=== PATIENT | female | born 2005 | race Caucasian/White ===

== ENCOUNTER 2023-06-10 16:54 | Emergency (ER) | payer BC, OTHER, SELFPAY ==
--- NOTE | ~2023-06-10 | XR_ITS ---
EXAMINATION: XR chest 2V DATE: 06/10/2023 18:50 INDICATION: Syncope. TECHNIQUE: Frontal and lateral views of the chest were obtained. COMPARISON: None. FINDINGS: There is no pneumonia, pleural effusion, or pneumothorax. The heart size is normal. IMPRESSION: 1. No acute cardiopulmonary disease. Reviewed, dictated and finalized at location E.
[2023-06-10 16:59] VITALS: BP 132/74; PULSE 115; RESP 18; TEMP 36.8; O2SAT 99
--- NOTE | 2023-06-10 16:59 | ECG_ITS ---
Measurements Intervals [place] Rate: 123 P: 59 NC: 120 QRS: 66 QRSD: 105 T: 53 QT: 307 QTc: 439 Interpretive Statements SINUS TACHYCARDIA INCOMPLETE RIGHT BUNDLE BRANCH BLOCK [90+ ms QRS DURATION, TERMINAL R IN V1/V2, 40+ ms S IN I/aVL/V4/V5/V6] NONSPECIFIC T-WAVE ABNORMALITY ABNORMAL RHYTHM ECG NO PREVIOUS ECG AVAILABLE FOR COMPARISON Electronically Signed On 06-10-2023 20:02:16 CDT by Arlette Jimenez M.D.
[2023-06-10 17:21] LABS: Basophils Percent Auto 0.2 % (0.2-1.2); Eosinophils Percent Auto 0.3 % (0-4.4); Hematocrit 35.9 % (37.0-47.0); Hemoglobin 11.6 g/dL (12.0-15.0); Immature Granulocyte Absolute 0.08 K/mm3 (0.00-0.031); Immature Granulocyte Percent A 0.6 % (0-0.5); Lymphocytes Absolute Auto 1.11 K/mm3 (0.9-3.2); Lymphocytes Percent Auto 8.7 % (18.3-44.2); Mean Corpuscular HGB Conc 32.3 g/dl (32-36); Mean Corpuscular Hemoglobin 28.8 pg (26-34); Mean Corpuscular Volume 89.1 fl (80-100); Mean Platelet Volume 10.4 fl (7.4-10.4); Monocytes Absolute Auto 0.6 K/mm3 (0.1-0.6); Monocytes Percent Auto 4.8 % (2.6-8.5); Neutrophils Percent Auto 85.4 % (45.5-73.1); Platelet Count Result 201 k/mm3 (150-375); Red Blood Count 4.03 M/mm3 (4.2-5.4); Red Cell Distribution Width 14.2 % (11.5-14.5); White Blood Count 12.8 K/mm3 (4.5-10.0)
[2023-06-10 17:46] LABS: Strep Group A RT-PCR NOT DETECTED (Negative)
[2023-06-10 17:47] LABS: Alanine Aminotransferase 14 U/L (6-35); Albumin Level 4.4 g/dL (3.7-5.6); Alkaline Phosphatase 52 U/L (45-116); Anion Gap 8 mmol/L (8-16); Aspartate Amino Transferase 24 U/L (14-36); Bilirubin,Total 0.6 mg/dL (0.2-1.3); Blood Urea Nitrogen 15 mg/dL (8-21); Calcium 9.3 mg/dL (8.9-10.7); Carbon Dioxide 23 mmol/L (22-30); Chloride 103 mmol/L (98-107); Estimated CRCL calculation 106 ml/min; Estimated Glomerular Filt Rate > 60; Glucose 104 mg/dL (65-110); Potassium 3.7 mmol/L (3.4-5.0); Sodium 134 mmol/L (134-143)
[2023-06-10 17:57] LABS: Influenza A QL RT-PCR Negative (Negative); Influenza B QL RT-PCR Negative (Negative); SARS-CoV-2 RNA PCR Negative (Negative)
[2023-06-10 18:27] VITALS: BP 115/68; PULSE 112; RESP 18; TEMP 37.3; O2SAT 100
--- NOTE | 2023-06-10 18:33 | ED.SYNCOPE ---
HPI - Syncope General Chief Complaint: Syncope <ADIEL Martinez Last Filed: 06/12/23 09:13> Stated Complaint: syncope at school <ADIEL Martinez Last Filed: 06/12/23 09:13> Time Seen by Provider: 06/10/23 22:03 <ADIEL Martinez Last Filed: 06/12/23 09:13> Source: patient <ADIEL Martinez Last Filed: 06/12/23 09:13> Mode of arrival: wheelchair <ADIEL Martinez Last Filed: 06/12/23 09:13> Limitations: no limitations <ADIEL Martinez Last Filed: 06/12/23 09:13> History of Present Illness HPI narrative: This is a 17 year old female that presents to the ER for a syncopal episode today. Report she has not been feeling well since yesterday. Reports sore throat and cough. Reports she started to feel lightheaded and anxious. Reports she was able to lower herself to the floor. She did not hit her head. Denies vision changes, chest pain, shortness of breath, vomiting, numbness or weakness. <ADIEL Martinez Last Filed: 06/12/23 09:13> Related Data Allergies/Adverse Reactions: Allergies Allergy/AdvReac Type Severity Reaction Status Date / Time Penicillins Allergy Mild Unknown Verified 06/10/23 16:55 sulfamethoxazole Allergy Rash Verified 06/10/23 16:55 [From Bactrim] trimethoprim [From Bactrim] Allergy Rash Verified 06/10/23 16:55 <ADIEL Martinez Last Filed: 06/12/23 09:13> Review of Systems Review of Systems: CONSTITUTIONAL: Denies fever EYES: Denies visual changes, CARDIOVASCULAR: Denies chest pain, palpitations, or edema. RESPIRATORY: Reports cough. Denies dyspnea. <ADIEL Martinez Last Filed: 06/12/23 09:13> All systems reviewed & are unremarkable except as noted in HPI and below <ADIEL Martinez Last Filed: 06/12/23 09:13> [facility] Past Medical History Medical History: Medical History No active medical problems <Avis Abel PA-C - Last Filed: 06/12/23 09:13> Social History Social History: Social History Smoking status: Never smoker <Avis Abel PA-C - Last Filed: 06/12/23 09:13> Exam Narrative: GENERAL: Well-appearing, well-nourished, and in no acute distress. HEAD: Normocephalic, atraumatic. EYES: PERRLA and EOMI. ENT: Nares clear, no rhinorrhea or epistaxis. Mucous membranes moist. Oropharynx without tonsillar hypertrophy exudate or other lesions. Bilateral TMs pearly jamison non-bulging NECK: Supple. No adenopathy or masses. CHEST: Clear to auscultation. No respiratory distress. No wheezes rales or rhonchi HEART: Regular rate and rhythm. No murmur heard. Normal peripheral pulses. EXTREMITIES: Normal range of motion. No edema. Strength equal in bilateral upper and lower extremities (5/5) SKIN: Warm, dry, no rash. NEURO: No focal deficits. Alert and oriented x3. Cranial nerves II through XII grossly intact PSYCH: Normal mood and affect <Avis Abel PA-C - Last Filed: 06/12/23 09:13> Course Vital Signs Vital signs: Vital Signs Temperature 98.2 F 06/10/23 16:59 Pulse Rate 115 H 06/10/23 16:59 Respiratory Rate 18 06/10/23 16:59 Blood Pressure 132/74 06/10/23 16:59 Pulse Oximetry 99 06/10/23 16:59 Oxygen Delivery Room Air 06/10/23 16:59 Temperature 100.3 F H 06/11/23 01:49 Pulse Rate 121 H 06/11/23 01:49 Respiratory Rate 20 06/11/23 01:49 Blood Pressure 103/57 L 06/11/23 01:49 Pulse Oximetry 99 06/11/23 01:49 Oxygen Delivery Room Air 06/10/23 16:59 <Avis Abel PA-C - Last Filed: 06/12/23 09:13> Vital Signs Temperature 98.2 F 06/10/23 16:59 Pulse Rate 115 H 06/10/23 16:59 Respiratory Rate 18 06/10/23 16:59 Blood Pressure 132/74 06/10/23 16:59 Pulse Oximetry 99 06/10/23 16:59 Oxygen Delivery Room Air 06/10/23 16:59 Temperature 100.3 F
[2023-06-10 18:57] LABS: Appearance Urine Cloudy (Clear); Bacteria Urine None Seen /hpf; Bilirubin Urine Negative (Negative); Blood Urine Negative (Negative); Color Urine Yellow (Yellow); Glucose Urine UA Negative (Negative); Ketones Urine Trace mg/dL (Negative); Leukocyte Esterase Ur Negative LEU/UL (Negative); Nitrate Urine Negative (Negative); Non Pathogenic Casts 0-2; Protein Urine Negative (Negative); RBC Urine 0-2 /hpf (0-2); Specific Grav Ur 1.008 (1.001-1.035); Squamous Epithelial Cell Urine None seen /hpf (Few); Urobilinogen Urine 0.2 mg/dL (<2.0); WBC Urine 0-5 /hpf
[2023-06-10 19:00] LABS: Add Urine Microscopic? YES
[2023-06-10 19:11] LABS: Troponin I < 0.012 ng/mL (0.000-0.034)
[2023-06-10] MEDS: SODIUM CHLORIDE 0.9% IV 1,000 ML 999 ML IV CONT ×2 (21:21→22:30)
[2023-06-10 21:22] VITALS: BP 93/53; PULSE 123; RESP 18; O2SAT 100
[2023-06-10 21:23] VITALS: PULSE 121; RESP 19; O2SAT 100
[2023-06-10 22:20] VITALS: BP 96/56; PULSE 122; RESP 25; O2SAT 99
[2023-06-10] MEDS: KETOROLAC 15 MG/ML VIAL (*BKC) IV PUSH (22:44)
[2023-06-10 23:38] LABS: Monoscreen Negative (Negative); Negative Monotest Control Negative (Negative); Positive Monotest Control Positive (Positive)
[2023-06-10 23:43] VITALS: BP 104/56; PULSE 118; RESP 20; TEMP 37.1; O2SAT 98
[2023-06-11] MEDS: SODIUM CHLORIDE 0.9% IV 1,000 ML 999 ML IV CONT (00:22)
[2023-06-11 01:49] VITALS: BP 103/57; PULSE 121; RESP 20; TEMP 37.9; O2SAT 99
[2023-06-11] MEDS: ACETAMINOPHEN 500 MG TABLET 1000 MG PO (02:13)
== END 2023-06-11 03:14 | disposition home or self-care (01) ==
PROVIDERS: Emergency Medicine; Physician Assistant; Emergency Provider Emergency Medicine
DX: B34.9 Viral infection, unspecified (principal); R55 Syncope and collapse; Z20.822 Contact with and (suspected) exposure to COVID-19; R00.0 Tachycardia, unspecified; I45.10 Unspecified right bundle-branch block; R94.31 Abnormal electrocardiogram [ECG] [EKG]
CPT/HCPCS: 36415; 71046; 80053; 81001; 84484; 85025; 86308; 87636; 87651; 93005; 96361; 96374; 99284; A9270; J1885; J7030